=== PATIENT | female | born 2000 | race Caucasian/White ===

== ENCOUNTER → 2024-05-07 14:01 | Outpatient (REF) | payer BC, SELFPAY | LOC: WDC 14:01 | PROVIDERS: ATTENDING PHYSICIAN Nurse Practitioner Adult Health | DX: N63.20 Unspecified lump in the left breast, unspecified quadrant (principal); N63.22 Unspecified lump in the left breast, upper inner quadrant | CPT/HCPCS: 76642 ==

== ENCOUNTER → 2024-10-19 09:23 | Outpatient (REF) | payer BC, SELFPAY | LOC: WDC 09:23 | PROVIDERS: ATTENDING PHYSICIAN Nurse Practitioner Adult Health; FAMILY PHYSICIAN Pediatrics | DX: R92.8 Other abnormal and inconclusive findings on diagnostic imaging of breast (principal) | CPT/HCPCS: 76642 ==